=== PATIENT | female | born 1990 | race Caucasian/White ===

== ENCOUNTER 2018-12-27 21:31 | Inpatient (IN) | payer OTHER ==
[2018-12-27] MEDS ORDERED: Butorphanol 1 MG/ML SDV IVPUSH PRN (21:51)
[2018-12-27] MEDS ORDERED: Misoprostol 200 MCG Tab PO PRN (21:51)
[2018-12-27] MEDS ORDERED: Ondansetron 4 MG/2 ML SDV IV PRN (21:51)
[2018-12-27] MEDS ORDERED: Sodium Chloride 0.9% 2.5 ML Syringe FLUSH PRN (21:51)
[2018-12-27] MEDS ORDERED: Tranexamic Acid 1,000 MG in Sodium Chloride 0.9% 100 ML IV PRN (21:51)
[2018-12-27] MEDS ORDERED: Sodium Chloride 0.9% 10 ML SDV IV PRN (21:51)
[2018-12-27] MEDS ORDERED: Lidocaine 1% 50 ML MDV INJECT PRN (21:51)
[2018-12-27] MEDS ORDERED: Water For Irrigation,Sterile 1,000 ML Container IRR PRN (21:51)
[2018-12-27] MEDS ORDERED: Carboprost Tromethamine 250 MCG/1 ML Amp IM PRN (21:51)
[2018-12-27] MEDS ORDERED: Methylergonovine 0.2 MG/1 ML Amp IM PRN (21:51)
[2018-12-27] MEDS ORDERED: Sodium Chloride 0.9% 10 ML Syringe FLUSH PRN (21:51)
[2018-12-27] MEDS ORDERED: Nalbuphine 10 MG/1 ML Vial IVPUSH PRN (21:51)
[2018-12-27] MEDS ORDERED: Lactated Ringers 1,000 ML IV SCH (22:00)
[2018-12-27] MEDS ORDERED: Oxytocin/0.9 % Sodium Chloride 30 UNIT/500 ML BAG IV SCH (22:00)
[2018-12-28] MEDS ORDERED: Ibuprofen 800 MG Tab PO PRN (00:34)
[2018-12-28] MEDS ORDERED: Methylergonovine 0.2 MG/1 ML Amp IM PRN (00:34)
[2018-12-28] MEDS ORDERED: Benzocaine/Menthol 20%-0.5% Spray 78 GM Cannister TOP PRN (00:34)
[2018-12-28] MEDS ORDERED: oxyCODONE 5 MG Tab PO PRN (00:34)
[2018-12-28] MEDS ORDERED: Ibuprofen 400 MG Tab PO PRN (00:34)
[2018-12-28] MEDS ORDERED: Acetaminophen 500 MG Tab PO PRN ×2 (00:34)
[2018-12-28] MEDS ORDERED: Witch Hazel Medicated Pads 40/Jar TOP PRN (00:34)
[2018-12-28] MEDS ORDERED: Bisacodyl 10 MG Supp RECTAL PRN (00:34)
[2018-12-28] MEDS ORDERED: Lanolin 100% Cream 7 GM Tube TOP PRN (00:34)
--- NOTE | 2018-12-28 00:38 | PCM.DEL ---
L & D Note - Delivery Note Labor: Spontaneous, Augmented by ARM Delivery Outcome: Livebirth Delivery Method: Spontaneous Vaginal Delivery-Single Presentation: Right Occiput Anterior (ZOILA) Nuchal Cord: None Prep: Other Anesthesia Type: None Amniotic Fluid Description: Clear Episiotomy Type: None Laceration: None Placenta: Intact, Spontaneous Cord: 3 Vessels Estimated Blood Loss: 200 Resuscitation Needed: No [place]: Suctioned Score 1 min: 9 Score 5 min: 9 Delivery Comments (Free Text/Narrative):: liveborn female weight pending - General Info Date of Service: 12/28/18 - Patient Data Lab Results Last 24 Hours: Laboratory Results - last 24 hr 12/27/18 12/27/18 Range/Units 22:08 22:08 WBC 15.44 H (4.0-11.0) K/uL RBC 4.01 L (4.30-5.90) M/uL Hgb 12.5 (12.0-16.0) g/dL Hct 36.5 (36.0-46.0) % MCV 91.0 (80.0-98.0) fL MCH 31.2 (27.0-32.0) pg MCHC 34.2 (31.0-37.0) g/dL RDW Std Deviation 45.4 (28.0-62.0) fl RDW Coeff of Rebecca 14 (11.0-15.0) % Plt Count 239 (150-400) K/uL MPV 11.10 (7.40-12.00) fL Nucleated RBC % 0.0 /100WBC Nucleated RBCs # 0 K/uL Blood Type O POSITIVE Antibody Screen NEGATIVE Med Orders - Current: Current Medications Acetaminophen (Tylenol Extra Strength) 500 mg PO Q4H PRN PRN Reason: Pain Acetaminophen (Tylenol Extra Strength) 1,000 mg PO Q4H PRN PRN Reason: Pain Benzocaine/Menthol (Dermoplast Pain Relief 20%-0.5% [place]) 78 gm TOP ASDIRECTED PRN PRN Reason: Perineal Comfort Measure Bisacodyl (Dulcolax) 10 mg RECTAL ONETIME PRN PRN Reason: Constipation Docusate Sodium (Colace) 100 mg PO BID PRN PRN Reason: Constipation Emollient Ointment (Lansinoh Hpa) 0 gm TOP ASDIRECTED PRN PRN Reason: Sore Nipples Ibuprofen (Motrin) 400 mg PO Q4H PRN PRN Reason: Pain Ibuprofen (Motrin) 800 mg PO Q6H PRN PRN Reason: Pain Methylergonovine Maleate (Methergine) 0.2 mg IM ONETIME PRN PRN Reason: Excessive Vaginal Bleeding Non-Formulary Medication (Pnv95/Ferrous Fumarate/Fa [ Tablet]) 1 tab PO DAILY [facility] Oxycodone HCl (Oxycodone) 5 mg PO Q2H PRN PRN Reason: Pain Witch Kourtney (Tucks) 1 pad TOP ASDIRECTED PRN PRN Reason: comfort care Discontinued Medications Butorphanol Tartrate (Stadol) 1 mg IVPUSH Q1H PRN PRN Reason: Pain Stop: 12/28/18 00:33 Carboprost Tromethamine (Hemabate Ds) 250 mcg IM ASDIRECTED PRN PRN Reason: Post Hemorrhage Lactated Ringer's (Ringers, Lactated) 1,000 mls @ 150 mls/hr IV ASDIRECTED [facility] Oxytocin/Sodium Chloride (Oxytocin 30 Unit/500 Ml-Ns) 30 unit in 500 mls @ 999 mls/hr IV TITRATE [facility] Tranexamic Acid 1,000 mg/ (Sodium Chloride) 110 mls @ 660 mls/hr IV ONETIME PRN PRN Reason: Bleeding Lidocaine HCl (Xylocaine 1%) 50 ml INJECT ONETIME PRN PRN Reason: Laceration repair Methylergonovine Maleate (Methergine) 0.2 mg IM ASDIRECTED PRN PRN Reason: Post Hemorrhage Misoprostol (Cytotec) 200 mcg PO ONETIME PRN PRN Reason: Post Hemorrhage Nalbuphine HCl (Nubain) 10 mg IVPUSH Q1H PRN PRN Reason: Pain (severe 7-10) Ondansetron HCl (Zofran) 4 mg IV Q4H PRN PRN Reason: Nausea/Vomiting Sodium Chloride (Saline Flush) 10 ml FLUSH ASDIRECTED PRN PRN Reason: Keep Vein Open Sodium Chloride (Saline Flush) 2.5 ml FLUSH ASDIRECTED PRN PRN Reason: Keep Vein Open Sodium Chloride (Normal Saline) 10 ml IV ASDIRECTED PRN PRN Reason: IV Use Sterile Water (Sterile Water For Irrigation) 1,000 ml IRR ASDIRECTED PRN PRN Reason: delivery - Problem List & Annotations (1) Vaginal delivery SNOMED Code(s): 722554255 Code(s): O80 - ENCOUNTER FOR FULL-TERM UNCOMPLICATED DELIVERY Status: Acute Current Visit: Yes - Problem List Review Problem List Initiated/Reviewed/Updated: Yes - My Orders Last 24 Hours: My Active Orders 12/27/18 21:52 Vital Signs [RC] PER UNIT ROUTINE 12/28/18 00:10 BLOOD GAS VENOUS UMBILICAL [BG] Urgent 12/28/18 00:34 Patient Status [ADT] Routine May Shower [RC] ASDIRECTED Up ad Tram [RC] ASDIRECTED Vital Signs [RC] PER UNIT ROUTINE Acetaminophen [Tylenol Extra Strength] 1,000 mg PO Q4H PRN Acetaminophen [Tylenol Extra Strength] 500 mg PO Q4H PRN Benzocaine/Menthol [Dermoplast Pain Relief 20%-0.5% [place]] 78 gm TOP ASDIRECTED PRN Bisacodyl [Dulcolax] 10 mg RECTAL ONETIME PRN Docusate Sodium [Colace] 100 mg PO BID PRN Ibuprofen [Motrin] 400 mg PO Q4H PRN Ibuprofen [Motrin] 800 mg PO Q6H PRN Lanolin [Lansinoh HPA] See Dose Instructions TOP ASDIRECTED PRN Methylergonovine [Methergine] 0.2 mg IM ONETIME PRN Witch Kourtney [Tucks] 1 pad TOP ASDIRECTED PRN oxyCODONE 5 mg PO Q2H PRN Assess Lochia [WOMSER] Per Unit Routine Assess Uterine Involution [WOMSER] Per Unit Routine Peripheral IV Discontinue [OM.PC] Routine Resuscitation Status Routine 12/28/18 00:35 Perineal Care [OM.PC] Per Unit Routine 12/28/18 00:45 BLOOD GAS ARTERIAL UMBILICAL [BG] DAILY 12/28/18 09:00 PNV95/Ferrous Fumarate/FA [ Tablet] 1 tab PO DAILY 12/28/18 Breakfast Regular Diet [DIET] 12/29/18 05:11 HEMOGLOBIN/HEMATOCRIT,HH [HEME] Timed
--- NOTE | 2018-12-28 06:30 | OR ---
SURGEON: Cassie Cordova M.D. DATE OF PROCEDURE: 12/28/2018 PREOPERATIVE DIAGNOSES: 1. A 40-week intrauterine . 2. Active spontaneous labor. POSTOPERATIVE DIAGNOSES: 1. A 40-week intrauterine . 2. Active spontaneous labor. PROCEDURES: Term spontaneous vaginal delivery. ANESTHESIA: None. ESTIMATED BLOOD LOSS: Less than 200 mL. FINDINGS: Liveborn female. scores of 9 and 9. Weight is pending at the time of dictation. Placenta spontaneous, Flanagan intact, with 3 vessels. Perineum intact. BRIEF HISTORY: This is a 28-year-old female, G2, P0-0-1-0, presents at 40 weeks' gestation in active spontaneous labor, 7 cm dilated, 90%, -2 station. She was admitted to Labor and Delivery. She had artificial rupture of membranes. Clear fluid was noted. She had category I heart tones throughout labor. She progressed to complete. DESCRIPTION OF PROCEDURE: With the patient in dorsal lithotomy position, the patient pushed over 45 minute time period to 5+ station, at which time the head was delivered spontaneously and atraumatically over the perineum with support with subsequent delivery of the 's shoulders and body without any difficulty. The father had requested to assist with the delivery. He was allowed to wash the perineum and provide countertraction on the head and assisted with the delivery of the . The infant was handed to the mother in the presence of the nurse attending delivery. The infant was a liveborn female, scores of 9 and 9. Weight is pending at the time of dictation. After the cord had ceased to pulsate, it was doubly clamped and cut. Cord blood was collected for cord ABGs as well as routine cord blood sampling. Pitocin was initiated after delivery of the to assist with delivery of the placenta which was delivered spontaneously, Flanagan intact with 3 vessels. Upon inspection of the pelvis and perineum, there were no periurethral, vaginal sidewall, cervical, rectal, or perineal lacerations. EBL was less than 200 mL. There were no known complications. The mother and are in LDR in good condition. QUIRINO / ROHAN /[id number]
[2018-12-28] MEDS: Prenatal Multivitamin and Multimineral with Iron Tab PO SCH (08:36)
[2018-12-28] MEDS: Docusate Sodium 100 MG Cap PO PRN (21:38)
[2018-12-29] MEDS: Prenatal Multivitamin and Multimineral with Iron Tab PO SCH (11:09)
[2018-12-29] MEDS: Docusate Sodium 100 MG Cap PO PRN (11:09)
--- NOTE | 2018-12-29 11:32 | PCM.PNPP ---
- General Info Date of Service: 12/29/18 Subjective Update: 28 s/p PPD 1 Functional Status: Reports: Pain Controlled, Tolerating Diet, Ambulating, Urinating - Review of Systems General: Reports: No Symptoms HEENT: Reports: No Symptoms Pulmonary: Reports: No Symptoms Cardiovascular: Reports: No Symptoms Gastrointestinal: Reports: No Symptoms Genitourinary: Reports: No Symptoms Musculoskeletal: Reports: No Symptoms Skin: Reports: No Symptoms Neurological: Reports: No Symptoms Psychiatric: Reports: No Symptoms - General Info Date of Service: 12/29/18 - Patient Data Vital Signs - Most Recent: Last Vital Signs Temp 36.7 C 12/29/18 07:45 Pulse 100 12/29/18 07:45 Resp 16 12/29/18 07:45 BP 119/79 12/29/18 07:45 Pulse Ox 97 12/29/18 07:45 Weight - Most Recent: 82.554 kg Lab Results - Last 24 Hours: Laboratory Results - last 24 hr 12/29/18 Range/Units 07:14 Hgb 11.3 L (12.0-16.0) g/dL Hct 34.0 L (36.0-46.0) % Med Orders - Current: Current Medications Acetaminophen (Tylenol Extra Strength) 500 mg PO Q4H PRN PRN Reason: Pain Acetaminophen (Tylenol Extra Strength) 1,000 mg PO Q4H PRN PRN Reason: Pain Benzocaine/Menthol (Dermoplast Pain Relief 20%-0.5% [place]) 78 gm TOP ASDIRECTED PRN PRN Reason: Perineal Comfort Measure Last Admin: 12/28/18 08:35 Dose: 1 canister Bisacodyl (Dulcolax) 10 mg RECTAL ONETIME PRN PRN Reason: Constipation Docusate Sodium (Colace) 100 mg PO BID PRN PRN Reason: Constipation Last Admin: 12/29/18 11:09 Dose: 100 mg Emollient Ointment (Lansinoh Hpa) 0 gm TOP ASDIRECTED PRN PRN Reason: Sore Nipples Ibuprofen (Motrin) 400 mg PO Q4H PRN PRN Reason: Pain Ibuprofen (Motrin) 800 mg PO Q6H PRN PRN Reason: Pain Last Admin: 12/28/18 14:34 Dose: 800 mg Methylergonovine Maleate (Methergine) 0.2 mg IM ONETIME PRN PRN Reason: Excessive Vaginal Bleeding Oxycodone HCl (Oxycodone) 5 mg PO Q2H PRN PRN Reason: Pain Prenat Multivit/[place]/Iron/Folic Ac ( Mtr) 1 each PO DAILY [facility] Last Admin: 12/29/18 11:09 Dose: 1 each Witch Kourtney (Tucks) 1 pad TOP ASDIRECTED PRN PRN Reason: comfort care Discontinued Medications Butorphanol Tartrate (Stadol) 1 mg IVPUSH Q1H PRN PRN Reason: Pain Stop: 12/28/18 00:33 Carboprost Tromethamine (Hemabate Ds) 250 mcg IM ASDIRECTED PRN PRN Reason: Post Hemorrhage Lactated Ringer's (Ringers, Lactated) 1,000 mls @ 150 mls/hr IV ASDIRECTED [facility] Oxytocin/Sodium Chloride (Oxytocin 30 Unit/500 Ml-Ns) 30 unit in 500 mls @ 999 mls/hr IV TITRATE [facility] Last Admin: 12/28/18 00:10 Dose: 999 mls/hr Tranexamic Acid 1,000 mg/ (Sodium Chloride) 110 mls @ 660 mls/hr IV ONETIME PRN PRN Reason: Bleeding Lidocaine HCl (Xylocaine 1%) 50 ml INJECT ONETIME PRN PRN Reason: Laceration repair Methylergonovine Maleate (Methergine) 0.2 mg IM ASDIRECTED PRN PRN Reason: Post Hemorrhage Misoprostol (Cytotec) 200 mcg PO ONETIME PRN PRN Reason: Post Hemorrhage Nalbuphine HCl (Nubain) 10 mg IVPUSH Q1H PRN PRN Reason: Pain (severe 7-10) Ondansetron HCl (Zofran) 4 mg IV Q4H PRN PRN Reason: Nausea/Vomiting Sodium Chloride (Saline Flush) 10 ml FLUSH ASDIRECTED PRN PRN Reason: Keep Vein Open Sodium Chloride (Saline Flush) 2.5 ml FLUSH ASDIRECTED PRN PRN Reason: Keep Vein Open Sodium Chloride (Normal Saline) 10 ml IV ASDIRECTED PRN PRN Reason: IV Use Sterile Water (Sterile Water For Irrigation) 1,000 ml IRR ASDIRECTED PRN PRN Reason: delivery Last Admin: 12/28/18 02:26 Dose: 1,000 ml - Interaction Support Person: - Recovery Exam Fundal Tone: Firm Fundal Level: 1 Fingerbreadths Below Umbilicus Fundal Placement: Midline Lochia Amount: Small Lochia Color: Rubra/Red Perineum Description: Intact, Minimal Bruising/Swelling Episiotomy/Laceration: None Bladder Status: Voiding - Exam General: Alert HEENT: Pupils Equal Neck: Supple Lungs: Clear to Auscultation Cardiovascular: Regular Rate GI/Abdominal Exam: Normal Bowel Sounds Extremities: Normal Inspection Psy/Mental Status: Alert - Problem List & Annotations (1) Vaginal delivery SNOMED Code(s): 065351368 Code(s): O80 - ENCOUNTER FOR FULL-TERM UNCOMPLICATED DELIVERY Status: Acute Current Visit: Yes - Problem List Review Problem List Initiated/Reviewed/Updated: No - Assessment Assessment:: 28 yo P1 s/p PPD1 , stable - Plan Plan:: Discharge home Continue care at home
== END 2018-12-29 12:45 | disposition home or self-care (01) | DRG 807 ==
LOC: MW.OB 21:31 → MW.OBCHECK 21:31 → MW.OB 21:52 → MW.OBCHECK 21:52 → OBSVTOIN 12-28 00:08 → MW.OB 12-28 04:36
PROVIDERS: ADMIT Obstetrics & Gynecology; ATTEND Obstetrics & Gynecology
PROC: 10907ZC Drainage of Amniotic Fluid, Therapeutic from Products of Conception, Via Natural or Artificial Opening (ICD-10-PCS; principal; 2018-12-28)
PROC: 6A550ZT Pheresis of Cord Blood Stem Cells, Single (ICD-10-PCS; principal; 2018-12-28)
PROC: 10E0XZZ Delivery of Products of Conception, External Approach (ICD-10-PCS; principal; 2018-12-28)
DX: O48.0 Post-term pregnancy (principal); Z37.0 Single live birth; Z3A.40 40 weeks gestation of pregnancy
CPT/HCPCS: 36415; 59025; 59409; 82803; 85014; 85018; 85027; 86850; 86900; 86901; A9270-GY; J2590